=== PATIENT | male | born 1945 | race Caucasian/White ===

== ENCOUNTER → 2020-11-20 | Day surgery (SDC) | payer OTHER ==
[~2020-11-20] MED LIST: CIPROFLOXACIN500 M1 PO; LISINOPRIL-HCT1 EAC1 PO; PROSCAR 5 MG TAB5 MG PO; TAMSULOSIN HCL0.4 MG PO
== END | disposition home or self-care (01) ==
LOC: OR 10:39
PROVIDERS: Urology
PROC: 0TJB8ZZ Inspection of Bladder, Via Natural or Artificial Opening Endoscopic (ICD-10-PCS; principal; 2020-11-20 13:00)
DX: N40.1 Benign prostatic hyperplasia with lower urinary tract symptoms (principal); R33.8 Other retention of urine; N39.0 Urinary tract infection, site not specified; J44.9 Chronic obstructive pulmonary disease, unspecified; I10 Essential (primary) hypertension; Z20.822 Contact with and (suspected) exposure to COVID-19
CPT/HCPCS: J7040